=== PATIENT | female | born 1970 | race African-American/Black ===

== ENCOUNTER 2017-02-11 05:32 | Observation (INO) ==
[2017-02-11] MEDS ORDERED: *HR* HYDROmorphone (PF) 1 MG/ML SYRINGE IVP PRN ×2 (10:01→15:07)
[2017-02-11] MEDS ORDERED: Ondansetron 4 MG/2 ML VIAL IVP PRN ×2 (10:01→15:07)
[2017-02-11] MEDS ORDERED: *HR* HYDROmorphone (PF) 1 MG/ML SYRINGE IVP ONE (10:02)
[2017-02-11] MEDS ORDERED: 0.9 % Sodium Chloride 1,000 ML IVC SCH ×2 (10:15→15:07)
[2017-02-11] MEDS ORDERED: Piperacillin/Tazobactam 3.375 GM in D5% in Water (Mini-Bag+) 100 ML IVPB SCH (11:00)
--- NOTE | 2017-02-11 11:27 | General Surg History&Physical ---
<Miranda Becerril - Last Filed: 02/11/17 11:57> Date of Encounter: 02/11/17 Time of Encounter: 11:21 Assessment and Plan (1) Acute appendicitis Current Visit: Yes Status: Acute patient presents with signs and symptoms of acute appendicitis. she was transferred from [facility] emergency department and received 2 units of packed red prior to arrival due to anemia of unknown etiology. On physical examination: active bowel sounds, abdominal tenderness to palpation eliciting tears, mc greg sign positive, rosving sign positive, psoas and obturator sign positive. CT scan 02/11/17 Impression: 1. Acute appendicitis. The appendix is dilated to 12 mm with surrounding inflammatory change and an appendicolith at the base. There is no free fluid. No fluid collections to suggest abscess. No free intraperitoneal air. 2. Cholelithiasis Nothing by mouth Supportive care and pain control IV fluids at [75] mL per hour IV antibiotics Zosyn 3.375 g g every 8 hours Incentive spirometer every 1 hour while awake PPI therapy: Patoprazole 40 mg IVP daily Risks, benefits, alternatives, expected outcomes reviewed with the patient is agreement to proceed to the operating room with for Laproscopic appendectomy in the next 24 hours. Verbal and written consent was obtained, signed, dated and placed in the chart. The assessment and plan as outlined above was discussed with the patient and/or family members who expressed understanding and agreement. All questions were answered. Qualifiers: Acute appendicitis type: unspecified acute appendicitis type Qualified Code (s): K35.80 - Unspecified acute appendicitis (2) Anemia Current Visit: Yes Status: Acute patient received 2 units of packed red blood cells on transfer prior to admission. The assessment and plan as outlined above was discussed with the patient and/or family members who expressed understanding and agreement. All questions were answered. Qualifiers: Anemia type: unspecified type Qualified Code(s): D64.9 - Anemia, unspecified (3) Cholelithiases Current Visit: Yes Status: Chronic Incidental finding on CT scan. The assessment and plan as outlined above was discussed with the patient and/or family members who expressed understanding and agreement. All questions were answered. Qualifiers: Cholelithiasis location: gallbladder Cholecystitis presence: without cholecystitis Biliary obstruction: without biliary obstruction Qualified Code(s): K80.20 - Calculus of gallbladder without cholecystitis without obstruction History of Present Illness Chief complaint: abdominal pain HPI: Ms. Tolbert is a 46 year old female with a past medical history of hypertensioncurrently on losartan and metoprololwho is being evaluated for abdominal pain. Patient reports that 6 days ago she developed sudden onset sharp periumbilical pain that radiated caudally bilaterally to left lower quadrant and right lower quadrant described as 12 out of 10 pain that remitted on its own after a few hours. Patient had another such episode on Monday but again it remitted on its own. No known exacerbating symptoms. yesterday, around 9 PM she once again developed periumbilical tenderness with diffuse radiation however this time it remained persisted since onset. Associated symptoms include: Nausea, vomiting one time non bilious non bloody, food aversion due to abdominal pain. Patient presented to ED due to unrelenting pain. Patient was transferred from [facility] to [place] for surgical care. MHX: HTN MEDS: Losartan Metroprolol SXH: C section 29 years ago Social: Pt was driving up from [place] to visit her boyfriend who is a construction equipment technician here in town on a job. Last BM: 6 days ago normal in consistency/caliber/color for pt Last meal: 11:00 am 02/10/17 pt ate [employer] Past Med Surg Social Fam HX - Past Medical History Medical history: hypertension Psychiatric history: no psych history - Past Surgical History Surgical History: - Social History Smoking Status: Never smoker Smokeless Tobacco Status: No Alcohol use: none Drug use: none Medications and Allergies Losartan Potassium [Cozaar] 50 mg PO DAILY 02/11/17 [History] Metoprolol XL (24 HR) Succ [Toprol XL] 50 mg PO DAILY 02/11/17 [History] Allergies No Known Allergies Allergy (Verified 02/11/17 03:08) Review of Systems All systems PM: A 10-system review of systems was performed and is negative for pertinent findings except as documented above in the HPI. - Constitutional anorexia, chills, no fever(s), no headache(s), no malaise - EENT Nose, mouth and throat: no dysphagia, no epistaxis, no throat swelling, no tongue swelling - Cardiovascular no chest pain, no claudication, no dyspnea, no edema, no palpitations - Respiratory no cough, no hemoptysis, no wheezing - Gastrointestinal abdominal pain, nausea, vomiting, no belching, no bloating, no coffee ground emesis, no cramping, no dyspepsia, no dysphagia, no hematemesis, no hematochezia , no melena, no odynophagia - Musculoskeletal no muscle cramps, no muscle weakness, no numbness - Integumentary no new lesions, no pruritus, no rash, no jaundice - Neurological no abnormal gait, no confusion, no disequilibrium, no headache(s), no syncope, no other visual disturbances - Psychiatric no irritability, no mood swings - Endocrine no fatigue, no flushing - Hematologic/Lymphatic no easy bleeding, no easy bruising, no lymphadenopathy - Allergic/Immunologic no tongue swelling, no throat swelling, no wheezing General Surgery Exam Initial Vital Signs Temp Pulse Resp BP Pulse Ox 97.7 F 81 18 123/79 100 02/11/17 10:45 02/11/17 10:45 02/11/17 10:45 02/11/17 10:45 02/11/17 10:45 - General physical appearance well developed, well nourished, severe pain, obese - Eyes PERRL, normal ocular movement - ENT normal pinna, normal nares, normal mucosa, atraumatic, normocephalic, CN 2-12 grossly intact - Neck no masses, trachea midline, no venous distension - Respiratory normal expansion, normal respiratory effort, clear to auscultation - Cardiovascular Cardiovascular exam: Present: RRR, JVD. Absent: no murmurs/rubs/gallops - Abdomen Abdomen general surgery: Present: bowel sounds present, soft, tender (positive mcburney/rosving/psoas and obturator signs) Abdominal Tenderness: Present: epigastic, RLQ, LLQ - Integumentary Integumentary general surgery: Present: warm and dry, no abnormal pigmentation. Absent: rash - Neurologic Present: CN 2-12 grossly intact, normal coordination, normal sensation - Musculoskeletal Present: normal posture - Psychiatric Psychiatric general surgery: Present: A&Ox3, speech is normal, memory intact, tearful Results - Labs All other labs normal. - VTE Documentation of Mechanical Device: Intermittent pneumatic compression device <Oscar Metcalf - Last Filed: 02/11/17 15:40> Date of Encounter: 02/11/17 History of Present Illness HPI: Ms. Tolbert is a 46 year old female Review of Systems All systems PM: A 10-system review of systems was performed and is negative for pertinent findings except as documented above in the HPI. General Surgery Exam Initial Vital Signs Temp Pulse Resp BP Pulse Ox 97.7 F 81 18 123/79 100 02/11/17 10:45 02/11/17 10:45 02/11/17 10:45 02/11/17 10:45 02/11/17 10:45 Results - Labs Abnormal lab results POC Glucose 99 (58-89) H 02/11/17 10:59 All other labs normal. - Attending Attestation I examined this patient and my medical decision-making was reviewed with the SOFTWARE DEVELOPMENT PROJECT MANAGER/PA/Advanced Practice Nurse/Resident Physician. I agree with the documented findings, disposition and treatment plan as described except to the extent set forth below. The patient is seen and evaluated. I personally reviewed her CAT scan. She has signs and symptoms of appendicitis as well as radiologic findings and leukocytosis. We discussed laparoscopic appendectomy and we will proceed on an urgent basis. Oscar Metcalf MD FACS
[2017-02-11] MEDS ORDERED: CefOXitin 1,000 MG VIAL ONE (12:47)
--- NOTE | 2017-02-11 12:50 | Anesthesia Evaluation PreOp ---
Date of Encounter: 02/11/17 Time of Encounter: 12:50 - Past History Planned Operation: Lap Appendectomy Cardiac History: HTN, Other (Severe Anemia, transfused 2 units PRBC) Pulmonary History: Denies Any Significant HX LEAD OPERATOR History: Denies Any Significant HX Other Medical History: Denies Any Significant HX Anesthesia History: No Prior Anesthetic Complications Alcohol Use: none Drug use: none Medications and Allergies Losartan Potassium [Cozaar] 50 mg PO DAILY 02/11/17 [History] Metoprolol XL (24 HR) Succ [Toprol XL] 50 mg PO DAILY 02/11/17 [History] Allergies No Known Allergies Allergy (Verified 02/11/17 03:08) - Meds/Allergy Pre-op Review Medications Reviewed: Yes Allergies Reviewed: Yes Beta Blockers on Current Med List: Yes (On metoprolol last taken 2 days ago) Anesthesia Results - Labs Laboratory Tests 02/11/17 02/11/17 04:18 04:18 Hgb 6.5 L Hct 24.5 L Plt Count 974 H Sodium 138 Potassium 4.0 BUN 9 Creatinine 0.84 Anesthesia Exam O2 Sat Height 1.68 m Height 1.68 m Weight 87.6 kg Weight 98.883 kg O2 Sat by Pulse Oximetry 100 Vital Signs Temp Pulse Resp BP Pulse Ox 97.7 F 81 18 123/79 100 02/11/17 10:45 02/11/17 10:45 02/11/17 10:45 02/11/17 10:45 02/11/17 10:45 Height: 5'6 Weight: 193 lbs NPO (# of Hours): MN Pain Scale: 1 - HEENT Pupil (Motor): Pupils equal, EOMI Mallampati: III Teeth: Normal Oral Opening: Greater than 3 - LEAD OPERATOR LOC: Oriented LEAD OPERATOR Motor: Normal RUE, Normal LUE, Normal RLE, Normal LLE, Normal Face LEAD OPERATOR Sensory: Normal: RUE, LUE, RLE, LLE, Face - Cardiac Rhythm: Regular Murmur: None JVD: No Carotid Bruit: No - Pulmonary Breath Sounds: bilateral Clear Respiratory Effort: Symmetrical Anesthesia Assess/Plan ASA Score: 2 Modified Boon Scale for Level of Consciousness: Cooperative, oriented, and tranquil Anesthetic Plan: General Monitoring Plan: Standard Monitors Recovery Plan: PACU (Discussed GA, agrees to proceed)
[2017-02-11] MEDS ORDERED: Ondansetron 4 MG/2 ML VIAL ONE (13:08)
[2017-02-11] MEDS ORDERED: *HR* Succinylcholine 200 MG/10 ML VIAL IVP ONE (13:08)
[2017-02-11] MEDS ORDERED: *HR* FentaNYL (PF) 100 MCG/2 ML VIAL ONE (13:08)
[2017-02-11] MEDS ORDERED: *HR* Propofol 200 MG/20 ML VIAL IVP ONE (13:08)
[2017-02-11] MEDS ORDERED: *HR* Rocuronium Bromide 50 MG/5 ML VIAL ONE (13:08)
[2017-02-11] MEDS ORDERED: Lidocaine -MPF 2% 2 ML VIAL ONE (13:08)
[2017-02-11] MEDS ORDERED: Dexamethasone 4 MG/ML VIAL ONE (13:08)
[2017-02-11] MEDS ORDERED: Lidocaine -MPF 4% 5 ML AMPUL ONE (13:24)
[2017-02-11] MEDS ORDERED: Famotidine 20 MG/2 ML VIAL ONE (13:49)
[2017-02-11] MEDS ORDERED: Acetaminophen IV 1,000 MG/100 ML INFUS..BTL ONE (13:49)
[2017-02-11] MEDS ORDERED: Neostigmine Methylsulfate 3 MG/3 ML SYRINGE ONE (14:02)
[2017-02-11] MEDS ORDERED: *HR* HYDROmorphone 2 MG/ML SYRINGE ONE (14:07)
--- NOTE | 2017-02-11 14:11 | Operative Note ---
Date of procedure: 02/11/17 Pre-op diagnosis: Acute appendicitis Post-op diagnosis: same Procedure: Laparoscopic appendectomy Anesthesia: SHARON Surgeon: Oscar Metcalf Estimated blood loss (cc): 10 Specimen: Appendix Condition: stable Disposition: PACU Procedure in Detail: After informed consent the patient is taken to the major operating suite and placed in the supine position and given adequate general anesthetic. The abdomen is prepped and draped in sterile fashion utilizing ChloraPrep standard draping techniques. Quintin taken patient was identified. Made a vertical midline incision below the umbilicus dissected down to level of fascia. 2 traction stitches were placed. The abdomen was entered visually. A placed a Ramos trocar and insufflated to 15 mmHg pressure CO2 area placed a 5 mm trocar in the left suprapubic area and a 12 trocar in the right upper quadrant. There was inflammatory fluid in the pelvis this was suctioned. There was some fibrinous exudate on the right tube. The appendix had separative changes with visible pus but no necrosis. I mobilize the cecum. I opened the window between the mesoappendix and the cecum. The base the cecum was divided with a gastrointestinal load on the laparoscopic stapler. The mesoappendix was divided with a vascular load from the laparoscopic stapler area the appendix was recovered in a specimen bag and removed through the umbilical port site. I replaced the umbilical port and irrigated with copious amounts of antibiotic containing solution. There is no evidence of bleeding. Staple lines were all intact. All trochars were removed. Fascia was closed with 0 Vicryl. Skin with 2-0 and 4-0 Vicryl.
--- NOTE | 2017-02-11 14:42 | Anesthesia Evaluation Post Op ---
Date of Encounter: 02/11/17 Time of Encounter: 14:50 - Vital Signs Vital Signs: Vital Signs/O2 Sat/Glucose, Most Current Temp Pulse Resp BP Pulse Ox 02/11/17 14:33 72 16 99/45 99 02/11/17 14:23 99.3 F 99 16 103/57 98 02/11/17 10:45 97.7 F 81 18 123/79 100 - Lungs Lungs: Clear Ascult./Percussion - Airway Airway: Non-obstructed - Cardiovascular Regular Rate - Mental Status Mental Status: Alert & Oriented, Answers Appropriately - Pain Pain Scale: 1 - Nausea Vomiting Nausea Vomiting: Not Present - Hydration Hydration: NPO - Discharge PostOp Status: Transfer Patient to floor
[2017-02-11] MEDS: Piperacillin/Tazobactam 3.375 GM in D5% in Water (Mini-Bag+) 100 ML IVPB SCH (18:24)
[2017-02-12] MEDS: Piperacillin/Tazobactam 3.375 GM in D5% in Water (Mini-Bag+) 100 ML IVPB SCH (03:40)
[2017-02-12 05:36] LABS: Basophils % 0.1 %; Hemoglobin 7.4 g/dL (11.5-15.4); Lymphocytes % 5.2 %
[2017-02-12 05:38] LABS: Hematocrit 26.7 % (35.3-44.9); Immature Granulocytes % 0.7 % (0-4); Lymphocytes # 0.9 K/mcL (0.6-4.6); Mean Corpuscular HGB Conc 27.7 g/dL (31.6-35.5); Mean Corpuscular Hemoglobin 17.7 pg (28.0-33.3); Mean Platelet Volume 10.2 fL (9.4-12.4); Monocytes # 0.5 K/mcL (0.0-1.3); Monocytes % 3.3 %; Neutrophils # 14.8 K/mcL (1.6-8.9); Platelet Count 670 K/mcL (140-400); Red Blood Count 4.17 M/mcL (3.82-4.97); Red Cell Distribution Width 29.2 % (11.5-14.5); Segmented Neutrophils % 90.7 %
[2017-02-12 05:41] LABS: INR 1.3; Prothrombin Time 13.9 Seconds (9.4-12.1)
[2017-02-12 05:44] LABS: Activated Partial Thrombo Time 25.9 Seconds (26.0-36.0)
[2017-02-12 05:51] LABS: Hypochromasia Present (Not Present); Microcytosis Present (Not Present); Platelet Estimate Increased (Normal)
[2017-02-12 05:52] LABS: Anisocytosis 2+ (Not Present); Poikilocytosis 1+ (Not Present); Polychromasia 1+ (Not Present)
[2017-02-12 05:55] LABS: BUN/Creatinine Ratio 9 (6-26); Blood Urea Nitrogen 8 mg/dL (7-20); Calcium 8.5 mg/dL (8.6-10.8); Carbon Dioxide 22 mEq/L (19-29); Chloride 111 mEq/L (98-109); Glucose 114 mg/dL (70-99); Osmolality,Calculated 287 (280-300); Potassium 3.7 mEq/L (3.5-4.5); Sodium 139 mEq/L (136-145); eGFR For African Americans > 60 (> 60); eGFR For Non-African Americans > 60 (> 60)
[2017-02-12] MEDS ORDERED: *HR* OxyCODONE/APAP 5/325 TABLET PO PRN (07:38)
--- NOTE | 2017-02-12 08:12 | Discharge Summary ---
<Miranda Becerril - Last Filed: 02/12/17 10:15> Date of Encounter: 02/12/17 Time of Encounter: 07:00 - Discharge Diagnosis (1) Acute appendicitis Priority: Primary Status: Resolved Qualifiers: Acute appendicitis type: unspecified acute appendicitis type Qualified Code (s): K35.80 - Unspecified acute appendicitis (2) Anemia Priority: Primary Status: Chronic Qualifiers: Anemia type: unspecified type Qualified Code(s): D64.9 - Anemia, unspecified (3) Cholelithiases Priority: Primary Status: Resolved Qualifiers: Cholelithiasis location: gallbladder Cholecystitis presence: without cholecystitis Biliary obstruction: without biliary obstruction Qualified Code(s): K80.20 - Calculus of gallbladder without cholecystitis without obstruction - Discharge Medications Prescriptions: OxyCODONE/APAP 5/325 [Percocet 5/325 MG] 1 each PO Q6HR PRN #30 tablet PRN Reason: Pain Ondansetron HCl [Zofran] 4 mg PO Q8HR #10 tablet Docusate [Colace] 100 mg PO DAILY #60 capsule Home Medications: Losartan Potassium [Cozaar] 50 mg PO DAILY 02/11/17 [History] Metoprolol XL (24 HR) Succ [Toprol XL] 50 mg PO DAILY 02/11/17 [History] Docusate [Colace] 100 mg PO DAILY #60 capsule 02/12/17 [Rx] Ondansetron HCl [Zofran] 4 mg PO Q8HR #10 tablet 02/12/17 [Rx] OxyCODONE/APAP 5/325 [Percocet 5/325 MG] 1 each PO Q6HR PRN #30 tablet 02/12/17 [Rx] Allergies/Adverse Reactions: Allergies No Known Allergies Allergy (Verified 02/11/17 03:08) General Surgery Exam Initial Vital Signs Temp Pulse Resp BP Pulse Ox 97.7 F 81 18 123/79 100 02/11/17 10:45 02/11/17 10:45 02/11/17 10:45 02/11/17 10:45 02/11/17 10:45 - General physical appearance well developed, well nourished, no distress, obese. negative: jaundice - Eyes PERRL, normal ocular movement - ENT normal nares, normal mucosa, atraumatic, normocephalic, CN 2-12 grossly intact - Neck trachea midline, no venous distension - Respiratory normal expansion, normal respiratory effort, clear to auscultation - Cardiovascular Cardiovascular exam: Present: RRR, no murmurs/rubs/gallops. Absent: JVD - Abdomen Abdomen general surgery: Present: bowel sounds present, soft, tender ( Postoperative tenderness as expected) - Incision Incision: Present: clean and dry, intact - Integumentary Integumentary general surgery: Present: warm and dry, no abnormal pigmentation. Absent: diaphoresis, rash - Neurologic Present: CN 2-12 grossly intact, normal coordination, normal sensation, deep tendon reflexes - Musculoskeletal Present: normal gait, normal posture - Psychiatric Psychiatric general surgery: Present: A&Ox3, appropriate, speech is normal, memory intact Date of admission: 02/11/17 10:01 Discharging clinician: Oscar Metcalf Anticipated date of discharge: 02/12/17 - Patient Status Disposition: Home, Self-Care Condition: Good Functional capacity at discharge: independent ambulation Overall status at discharge: patient is back to baseline - Discharge Instructions Follow Up With: Oscar Metcalf MD [Partnered Physician] - (Follow-up in [address] Metcalf for appendectomy. Will plan for cholecystectomy in the future.) Additional Instructions: 1. May shower today. No tub bath for 2 weeks. 2. Wash incisions with soap and water and pat dry daily. 3. No lifting more than 20 lbs for [address] when off narcotics for over 24 hours and able to react safely in the car. 5. May climb stairs. - Diet and Activity Activity: increase activity as tolerated Diet: advance to your usual diet - Hospital Course Hospital course: Ms. Tolbert is a 46 year old female who presented with signs and symptoms of acute appendicitis. She underwent a laparoscopic appendectomy on 02/11/[address] Metcalf without complication. Patient has recovered well. She is tolerating regular diet without nausea or vomiting. She is ambulating without difficulty. She is urinating without difficulty. She has passed gas. She states minimal abdominal tenderness over incision sites. On physical exam there are no peritoneal signs. Minimal tenderness to palpation of her incisions. Patient is clear from a surgical standpoint and is cleared to be discharged home. - Time Spent with Patient Total time spent providing and/or coordinating discharge services: Less than 30 minutes Labs on day of discharge: Labs from last 24 hours 02/12/17 02/12/17 02/12/17 05:21 05:21 05:21 WBC 16.3 H RBC 4.17 Hgb 7.4 L Hct 26.7 L MCV 64.0 L MCH 17.7 L MCHC 27.7 L RDW 29.2 H Plt Count 670 H MPV 10.2 Immature Gran % 0.7 Seg Neutrophils % 90.7 Lymphocytes % 5.2 Monocytes % 3.3 Eosinophils % 0.0 Basophils % 0.1 Neutrophils # 14.8 H Lymphocytes # 0.9 Monocytes # 0.5 Eosinophils # 0.0 Basophils # 0.0 Platelet Estimate Increased H Polychromasia 1+ A Hypochromasia Present A Poikilocytosis 1+ A Anisocytosis 2+ A Microcytosis Present A PT 13.9 H INR 1.3 APTT 25.9 L Sodium 139 Potassium 3.7 Chloride 111 H Carbon Dioxide 22 BUN 8 Creatinine 0.85 Est GFR ( Amer) > 60 Est GFR (Non-Af Amer) > 60 BUN/Creatinine Ratio 9 Glucose 114 H POC Glucose Calculated Osmolality 287 Calcium 8.5 L Serum , Qual 02/11/17 02/11/17 13:04 10:59 WBC RBC Hgb Hct MCV MCH MCHC RDW Plt Count MPV Immature Gran % Seg Neutrophils % Lymphocytes % Monocytes % Eosinophils % Basophils % Neutrophils # Lymphocytes # Monocytes # Eosinophils # Basophils # Platelet Estimate Polychromasia Hypochromasia Poikilocytosis Anisocytosis Microcytosis PT INR APTT Sodium Potassium Chloride Carbon Dioxide BUN Creatinine Est GFR ( Amer) Est GFR (Non-Af Amer) BUN/Creatinine Ratio Glucose POC Glucose 99 H Calculated Osmolality Calcium Serum , Qual Negative <Dixon,Oscar T - Last Filed: 02/12/17 14:46> Date of Encounter: 02/12/17 General Surgery Exam Initial Vital Signs Temp Pulse Resp BP Pulse Ox 97.7 F 81 18 123/79 100 02/11/17 10:45 02/11/17 10:45 02/11/17 10:45 02/11/17 10:45 02/11/17 10:45 Date of admission: 02/11/17 10:01 - Hospital Course Hospital course: Ms. Tolbert is a 46 year old female - Time Spent with Patient Total time spent providing and/or coordinating discharge services: Labs on day of discharge: Labs from last 24 hours 02/12/17 02/12/17 02/12/17 05:21 05:21 05:21 WBC 16.3 H RBC 4.17 Hgb 7.4 L Hct 26.7 L MCV 64.0 L MCH 17.7 L MCHC 27.7 L RDW 29.2 H Plt Count 670 H MPV 10.2 Immature Gran % 0.7 Seg Neutrophils % 90.7 Lymphocytes % 5.2 Monocytes % 3.3 Eosinophils % 0.0 Basophils % 0.1 Neutrophils # 14.8 H Lymphocytes # 0.9 Monocytes # 0.5 Eosinophils # 0.0 Basophils # 0.0 Platelet Estimate Increased H Polychromasia 1+ A Hypochromasia Present A Poikilocytosis 1+ A Anisocytosis 2+ A Microcytosis Present A PT 13.9 H INR 1.3 APTT 25.9 L Sodium 139 Potassium 3.7 Chloride 111 H Carbon Dioxide 22 BUN 8 Creatinine 0.85 Est GFR ( Amer) > 60 Est GFR (Non-Af Amer) > 60 BUN/Creatinine Ratio 9 Glucose 114 H Calculated Osmolality 287 Calcium 8.5 L - Attending Attestation I examined this patient and my medical decision-making was reviewed with the ADOBE LAYER/PA/Advanced Practice Nurse/Resident Physician. I agree with the documented findings, disposition and treatment plan as described except to the extent set forth below. The patient was seen and evaluated on morning rounds. Her pain control is excellent. Her preoperative pain is gone. She is ready for discharge. She will be seen in 1-2 weeks in the office. Oscar Metcalf MD FACS
[2017-02-12 08:30] VITALS: BP 133/84
[2017-02-12] MEDS ORDERED: Pantoprazole 40 MG VIAL IVP SCH ×2 (09:00)
[2017-02-12] MEDS ORDERED: Metoprolol XL (24 HR) Succ 50 MG TAB.ER.24H PO SCH (09:00)
== END 2017-02-12 11:46 | disposition home or self-care (01) ==
LOC: 3ANU
PROVIDERS: ADMIT Surgery; ATTEND Surgery